=== PATIENT | female | born 1980 | race Caucasian/White ===

== ENCOUNTER → 2018-07-01 | Day surgery (SDC) | payer OTHER ==
[~2018-07-01] MED LIST: BUPIVACAINE HCL 0.5% INJ 30 ML VIAL INJ ONE; CEFAZOLIN SOD 1 GM/NS 50ML 50 ML IV ONE; CYCLOBENZAPRINE5 MG PO; FENTANYL CITRATE/PF 100MCG/2 ML INJ ONE; MIDAZOLAM HCL 2 MG/2 ML VIAL ONE; MUPIROCIN 2% OINT 22 GM TUBE ONE; PANTOPRAZOLE SO40 MG PO; TOPAMAX25 MG PO; ZOLOFT50 MG PO
[2018-07-01 09:30] VITALS: BP 112/77
--- NOTE | 2018-07-01 14:11 | Operative Report ---
DATE OF PROCEDURE: 07/01/2018 SURGEON: Nilesh Scott MD PREOPERATIVE DIAGNOSIS: Left cubital tunnel syndrome. POSTOPERATIVE DIAGNOSIS: Left cubital tunnel syndrome. PROCEDURE: Left ulnar nerve decompression/transposition. ANESTHESIA: General. HISTORY: The patient is a 37-year-old [id number] female, who has significant nerve conduction velocity slowing across the cubital tunnel as diagnosed on nerve conduction study testing. The risks, benefits, and alternatives of treatment discussed with the patient and she is prepared to undergo the procedure as outlined. PROCEDURE IN DETAIL: The patient was marked preoperatively in the holding area. She was brought to the operating theater and after the induction of adequate general anesthesia, she was prepped and draped in a supine position. A time-out was performed. An incision was marked originating from the medial epicondyle and extending proximally and distally for 4-5 cm. The left upper extremity was exsanguinated and the tourniquet was inflated to a pressure of 250 mmHg. The incision was made through the skin and subcutaneous tissue. Venous tributaries were controlled with a bipolar cautery. The dissection continued through the subcutaneous tissue, identifying and protecting and preserving the sensory branches on the medial aspect of the elbow. At this point, the dissection continued directly onto the intermuscular septum and the fascia overlying the ulnar nerve proximal to the cubital tunnel. The ulnar nerve was then identified and the dissection continued distally removing all the subcutaneous tissue off the fascia of the cubital tunnel and then onto the flexor pronator muscle mass aponeurosis. At this point, the fascia overlying the ulnar nerve was incised proximal to the cubital tunnel and this fascia was then incised moving distally toward the cubital tunnel. At the level of the cubital tunnel, elevating the fascia and keeping the nerve inside and protecting and preserving it, the cubital tunnel fascia was incised and the dissection continued down to the flexor pronator muscle mass where the aponeurosis was incised and the muscle fibers were then teased apart in the direction of the nerve. At this point, the dissection continued on the posterior aspect of the nerve bluntly to elevate the nerve out of its bed. A quarter-inch [place] drain was placed around the nerve to be used for traction purposes. Gently teasing the nerve out of its bed, all the posterior attachments were released bluntly from proximal to the cubital tunnel all the way to the flexor pronator muscle mass. The dissection terminated at the level of the first and second muscular branches to the flexor pronator muscle mass. At this point, prior to transposing the nerve, the intermuscular septum was skeletonized and it was excised from the insertion onto the medial epicondyle and for a distance of several centimeters proximally so as not to create a luana site of compression when the nerve was transposed. At this point, using the [place] drain, the nerve was transposed out of the cubital tunnel and was transposed anteriorly and subcutaneously and it was noted to lie in a good course without any acuity, the elbow was placed through a range of motion and there was noted to be good gliding and no kinking of the nerve. Distally, a small section of the flexor pronator aponeurosis was removed so that the nerve transitioned from the subcutaneous space back to the flexor pronator muscle mass without any acuity. At this point, a sling was created by utilizing 3-0 Vicryl sutures in a [id number] fashion approximating the deep subcutaneous fascia to the medial epicondyle keeping the nerve anterior and subcutaneous. When the sling was fashioned, care was taken to ensure that there was no encroachment or pressure placed on the nerve. Once the sling had been created with several interrupted sutures, the elbow was once again placed through a range of motion, it was observed directly and there was no acuity to the course of the nerve and no undue pressure on it. At this point, the wound was irrigated with bacteriostatic saline and closed with a 3-0 Vicryl in interrupted buried fashion to approximate the deep dermis with 5-0 nylon in an interrupted horizontal mattress fashion to approximate the superficial tissues. A Marcaine field block was performed with 0.5% plain Marcaine, approximately 20 mL was used. The tourniquet was deflated, all fingers pinked up nicely, and the wound was noted to be hemostatic. Bactroban ointment, Xeroform gauze, and a sterile bulky conforming bandage were applied from axilla to wrist. A posterior fiberglass splint was fashioned to maintain the elbow in approximately 70 degrees of flexion and held in place with loosely wrapped Tariq wraps. The patient tolerated the procedure well, was brought to recovery room in satisfactory condition and discharged with a postoperative instruction sheet as well as a followup appointment. MD IKE Albarado/ALBINA /[id number]
== END | disposition home or self-care (01) ==
LOC: OR 05:23
PROVIDERS: ATTEND Plastic Surgery
DX: G56.22 Lesion of ulnar nerve, left upper limb (principal); I10 Essential (primary) hypertension; K21.9 Gastro-esophageal reflux disease without esophagitis; F41.9 Anxiety disorder, unspecified; F31.9 Bipolar disorder, unspecified; Z87.891 Personal history of nicotine dependence
CPT/HCPCS: 64718; 81025; J0690; J2250